=== PATIENT | male | born 1995 | race Caucasian/White ===

== ENCOUNTER 2018-11-06 18:21 | Inpatient (IN) | payer BC ==
[2018-11-06] MEDS ORDERED: NS 1,000 ML IV ONE ×2 (18:43→19:21)
--- NOTE | 2018-11-06 18:54 | EDPHY ---
H & P Stated Complaint: diabetic, feels sick, BGL high all day Time Seen by Provider: 11/06/18 18:42 HPI/ROS: CHIEF COMPLAINT: Hyperglycemia, nausea HISTORY OF PRESENT ILLNESS: The patient has a history of type 1 diabetes and is on insulin pump. He presents to the ED with several days of hyperglycemia with blood sugars in the 400 range. He has associated symptoms of fatigue and nausea. He denies vomiting, fever, cough or infectious symptoms. The patient denies acute pain. The patient does report that he smokes marijuana on a daily basis. The patient drinks approximately 1 drink today. REVIEW OF SYSTEMS: A comprehensive 10 point review of systems is otherwise negative aside from elements mentioned in the history of present illness. Source: Patient Exam Limitations: No limitations - Personal History Current Tetanus/Diphtheria Vaccine: Yes Current Tetanus Diphtheria and Acellular Pertussis (TDAP): Yes - Medical/Surgical History Hx Asthma: No Hx Chronic Respiratory Disease: No Hx Diabetes: Yes Hx Cardiac Disease: No Hx Renal Disease: No Hx Cirrhosis: No Hx Alcoholism: No Hx HIV/AIDS: No Hx Splenectomy or Spleen Trauma: No - Social History Smoking Status: Never smoked - Physical Exam Exam: General Appearance: Alert, no distress Eyes: Pupils equal and round no pallor or injection ENT, Mouth: Mucous membranes moist Respiratory: There are no retractions, lungs are clear to auscultation Cardiovascular: Regular rate and rhythm Gastrointestinal: Abdomen is soft and nontender, no masses, bowel sounds normal Neurological: 5/5 strength noted all 4 extremities Skin: Warm and dry, no rashes Musculoskeletal: Neck is supple nontender Extremities: symmetrical, full range of motion Constitutional: Initial Vital Signs Temperature (C) 37.1 C 11/06/18 18:26 Heart Rate 118 H 11/06/18 18:26 Respiratory Rate 18 11/06/18 18:26 Blood Pressure 139/79 H 11/06/18 18:26 O2 Sat (%) 97 11/06/18 18:26 O2 Delivery Mode Room Air Allergies/Adverse Reactions: No Known Allergies Allergy (Unverified 11/06/18 18:30) Home Medications: Medication Instructions Recorded novoLOG 11/06/18 Medical Decision Making ED Course/Re-evaluation: The patient presents to the ED with nausea and hyperglycemia for the past 2 days. The patient arrives and is noted to have a blood sugar 454. His venous pH is 7.3. His anion gap is 24. The patient had an IV established. He received 2 L of normal saline. The patient is started an insulin drip in the emergency department. The patient will be admitted to the intensive care for further management and treatment of his diabetic ketoacidosis. Consultation was made with Dr. Singh at 7:40 p.m.. He will admit the patient primarily. Differential Diagnosis: Differential diagnosis considered includes hyperglycemia, dehydration, renal failure, diabetic ketoacidosis Critical Care Time: Critical care time exclusive of procedures and exclusive of the PA's time was 35 minutes, performed by myself, Senthil Fam MD. Patient presents the emergency department diabetic ketoacidosis. The patient has been started on insulin drip and will be admitted to the intensive care unit. - Data Points Laboratory Results: Laboratory Results 11/06/18 18:50 11/06/18 18:50 11/06/18 11/06/18 11/06/18 18:55 18:50 18:50 WBC 11.37 10^3/uL H 10^3/uL (3.80-9.50) RBC 5.36 10^6/uL 10^6/uL (4.40-6.38) Hgb 16.8 g/dL g/dL (13.7-17.5) POC Hgb 17.7 gm/dL H gm/dL (13.7-17.5) Hct 47.1 % % (40.0-51.0) POC Hct 52 % H % (40-51) MCV 87.9 fL fL (81.5-99.8) MCH 31.3 pg pg (27.9-34.1) MCHC 35.7 g/dL g/dL (32.4-36.7) RDW 11.6 % % (11.5-15.2) Plt Count 257 10^3/uL 10^3/uL (150-400) MPV 11.6 fL fL (8.7-11.7) Neut % (Auto) 76.0 % H % (39.3-74.2) Lymph % (Auto) 16.4 % % (15.0-45.0) [place] % (Auto) 6.6 % % (4.5-13.0) Eos % (Auto) 0.2 % L % (0.6-7.6) Baso % (Auto) 0.4 % % (0.3-1.7) Nucleat RBC Rel Count 0.0 % % (0.0-0.2) Absolute Neuts (auto) 8.64 10^3/uL H 10^3/uL (1.70-6.50) Absolute Lymphs (auto) 1.87 10^3/uL 10^3/uL (1.00-3.00) Absolute Monos (auto) 0.75 10^3/uL 10^3/uL (0.30-0.80) Absolute Eos (auto) 0.02 10^3/uL L 10^3/uL (0.03-0.40) Absolute Basos (auto) 0.05 10^3/uL 10^3/uL (0.02-0.10) Absolute Nucleated RBC 0.00 10^3/uL 10^3/uL (0-0.01) Immature Gran % 0.4 % % (0.0-1.1) Immature Gran # 0.04 10^3/uL 10^3/uL (0.00-0.10) Puncture Site Patient Temperature VBG pH VBG HCO3 VBG Total CO2 VBG O2 Saturation VBG Base Excess Mixed VBG pCO2 Mixed VBG pO2 POC Sodium 134 mEq/L L mEq/L (135-145) Sodium 128 mEq/L L mEq/L (135-145) POC Potassium 4.4 mEq/L mEq/L (3.3-5.0) Potassium 4.7 mEq/L mEq/L (3.5-5.2) POC Chloride 100 mEq/L mEq/L (97-110) Chloride 96 mEq/L L mEq/L (97-110) Carbon Dioxide 12 mEq/l L mEq/l (22-31) POC Total CO2 15 mEq/L L mEq/L (22-31) Anion Gap 20 mEq/L H mEq/L (6-14) POC BUN 24 mg/dL H mg/dL (7-23) BUN 23 mg/dL mg/dL (7-23) Creatinine 1.0 mg/dL mg/dL (0.7-1.3) POC Creatinine 1.0 mg/dL mg/dL (0.7-1.3) Estimated GFR > 60 Glucose 454 mg/dL H mg/dL (70-100) POC Glucose 480 mg/dL H mg/dL (70-100) Calcium 10.2 mg/dL mg/dL (8.5-10.4) 11/06/18 18:30 WBC RBC Hgb POC Hgb Hct POC Hct MCV MCH MCHC RDW Plt Count MPV Neut % (Auto) Lymph % (Auto) [place] % (Auto) Eos % (Auto) Baso % (Auto) Nucleat RBC Rel Count Absolute Neuts (auto) Absolute Lymphs (auto) Absolute Monos (auto) Absolute Eos (auto) Absolute Basos (auto) Absolute Nucleated RBC Immature Gran % Immature Gran # Puncture Site VENOUS Patient Temperature 37.0 DEGREES DEGREES VBG pH 7.30 L (7.31-7.42) VBG HCO3 12 mEQ/L L mEQ/L (22-26) VBG Total CO2 13 mEq/L L mEq/L (21-27) VBG O2 Saturation 97 % H % (65-75) VBG Base Excess -12.4 mEq/L L mEq/L (-2.5-2.5) Mixed VBG pCO2 26 mmHg L mmHg (40-44) Mixed VBG pO2 97 mmHG H mmHG (35-40) POC Sodium Sodium POC Potassium Potassium POC Chloride Chloride Carbon Dioxide POC Total CO2 Anion Gap POC BUN BUN Creatinine POC Creatinine Estimated GFR Glucose POC Glucose Calcium Medications Given: Discontinued Medications Sodium Chloride (Ns) 1,000 mls @ 0 mls/hr IV EDNOW ONE; Wide Open PRN Reason: Protocol Stop: 11/06/18 18:44 Last Admin: 11/06/18 18:58 Dose: 1,000 mls Point of Care Test Results: Chemistry 11/06/18 18:55 POC Sodium 134 mEq/L L mEq/L (135-145) POC Potassium 4.4 mEq/L mEq/L (3.3-5.0) POC Chloride 100 mEq/L mEq/L (97-110) POC Total CO2 15 mEq/L L mEq/L (22-31) POC BUN 24 mg/dL H mg/dL (7-23) POC Creatinine 1.0 mg/dL mg/dL (0.7-1.3) POC Glucose 480 mg/dL H mg/dL (70-100) ISTAT H&H 11/06/18 18:55 POC Hgb 17.7 gm/dL H gm/dL (13.7-17.5) POC Hct 52 % H % (40-51) Departure - Departure Disposition: [facility] In[facility] Acute Clinical Impression: Diabetic ketoacidosis Condition: Good
[2018-11-06 19:02] LABS: PLATELET COUNT 257 10^3/uL (150-400)
[2018-11-06] MEDS ORDERED: INSULIN REGULAR HUMAN 100 UNIT, COSIGN. REQUIRED 1 EA in NS 100 ML IV ONE (19:21)
[2018-11-06] MEDS ORDERED: ACETAMINOPHEN 325 MG TAB PO PRN (19:54)
[2018-11-06] MEDS ORDERED: ONDANSETRON 4 MG/2 ML VIAL IVP PRN (19:54)
[2018-11-06] MEDS ORDERED: ONDANSETRON DISINTEGRATING 4 MG TAB PO PRN (19:54)
--- NOTE | 2018-11-06 22:06 | PDGENHP ---
History and Physical - Chief Complaint Hyperglycemia - History of Present Illness Den Leal is a 23 yo M with a PMhx of T1DM on insulin pump, DKA who presents to [facility] for hyperglycemia and fatigue. Patient reports that recently he has been having larger meals without additional boluses as he normally does. This has been occurring for the past few days. He reports that yesterday he was feeling increasingly fatigued. His BG has been running in the 400's despite additional insulin boluses earlier today. He denies any chest pain, SOB , URI symptoms, vomiting, d/c. History Information - Allergies/Home Medication List Allergies/Adverse Reactions: No Known Allergies Allergy (Unverified 11/06/18 18:30) Home Medications: Insulin Pump, Patient Own 1 ea MISC AD 11/06/18 [Last Taken 11/06/18] novoLOG 0 units SC CONT 11/06/18 [Last Taken 11/06/18] I have personally reviewed and updated: family history, medical history, social history, surgical history - Past Medical History diabetes type 1 - Surgical History Reports: no pertinent surgical hx - Family History Positive for: non-pertinent - Social History Smoking Status: Never smoked Review of Systems Review of Systems: ROS: 10pt was reviewed & negative except for what was stated in HPI & below Physical Exam Physical Exam: Temp Pulse Resp BP Pulse Ox 37.1 C 110 H 16 108/95 H 96 11/06/18 18:26 11/06/18 19:51 11/06/18 19:51 11/06/18 19:51 11/06/18 19:51 Constitutional: no apparent distress Eyes: PERRL Ears, Nose, Mouth, Throat: moist mucous membranes Cardiovascular: regular rate and rhythym Respiratory: no respiratory distress Gastrointestinal: normoactive bowel sounds Skin: warm Musculoskeletal: full muscle strength Neurologic: AAOx3 Psychiatric: interacting appropriately Lab Data & Imaging Review 11/06/18 18:50 11/06/18 18:50 WBC 11.37 10^3/uL (3.80-9.50) H 11/06/18 18:50 RBC 5.36 10^6/uL (4.40-6.38) 11/06/18 18:50 Hgb 16.8 g/dL (13.7-17.5) 11/06/18 18:50 POC Hgb 17.7 gm/dL (13.7-17.5) H 11/06/18 18:55 Hct 47.1 % (40.0-51.0) 11/06/18 18:50 POC Hct 52 % (40-51) H 11/06/18 18:55 MCV 87.9 fL (81.5-99.8) 11/06/18 18:50 MCH 31.3 pg (27.9-34.1) 11/06/18 18:50 MCHC 35.7 g/dL (32.4-36.7) 11/06/18 18:50 RDW 11.6 % (11.5-15.2) 11/06/18 18:50 Plt Count 257 10^3/uL (150-400) 11/06/18 18:50 MPV 11.6 fL (8.7-11.7) 11/06/18 18:50 Neut % (Auto) 76.0 % (39.3-74.2) H 11/06/18 18:50 Lymph % (Auto) 16.4 % (15.0-45.0) 11/06/18 18:50 [place] % (Auto) 6.6 % (4.5-13.0) 11/06/18 18:50 Eos % (Auto) 0.2 % (0.6-7.6) L 11/06/18 18:50 Baso % (Auto) 0.4 % (0.3-1.7) 11/06/18 18:50 Nucleat RBC Rel Count 0.0 % (0.0-0.2) 11/06/18 18:50 Absolute Neuts (auto) 8.64 10^3/uL (1.70-6.50) H 11/06/18 18:50 Absolute Lymphs (auto) 1.87 10^3/uL (1.00-3.00) 11/06/18 18:50 Absolute Monos (auto) 0.75 10^3/uL (0.30-0.80) 11/06/18 18:50 Absolute Eos (auto) 0.02 10^3/uL (0.03-0.40) L 11/06/18 18:50 Absolute Basos (auto) 0.05 10^3/uL (0.02-0.10) 11/06/18 18:50 Absolute Nucleated RBC 0.00 10^3/uL (0-0.01) 11/06/18 18:50 Immature Gran % 0.4 % (0.0-1.1) 11/06/18 18:50 Immature Gran # 0.04 10^3/uL (0.00-0.10) 11/06/18 18:50 Puncture Site NONE GIVEN 11/06/18 21:30 Patient Temperature 37.0 DEGREES 11/06/18 21:30 VBG pH 7.31 (7.31-7.42) 11/06/18 21:30 VBG HCO3 13 mEQ/L (22-26) L 11/06/18 21:30 VBG Total CO2 14 mEq/L (21-27) L 11/06/18 21:30 VBG O2 Saturation 91 % (65-75) H 11/06/18 21:30 VBG Base Excess -11.9 mEq/L (-2.5-2.5) L 11/06/18 21:30 Mixed VBG pCO2 26 mmHg (40-44) L 11/06/18 21:30 Mixed VBG pO2 65 mmHG (35-40) H 11/06/18 21:30 POC Sodium 134 mEq/L (135-145) L 11/06/18 18:55 Sodium 128 mEq/L (135-145) L 11/06/18 18:50 POC Potassium 4.4 mEq/L (3.3-5.0) 11/06/18 18:55 Potassium 4.7 mEq/L (3.5-5.2) 11/06/18 18:50 POC Chloride 100 mEq/L (97-110) 11/06/18 18:55 Chloride 96 mEq/L (97-110) L 11/06/18 18:50 Carbon Dioxide 12 mEq/l (22-31) L 11/06/18 18:50 POC Total CO2 15 mEq/L (22-31) L 11/06/18 18:55 Anion Gap 20 mEq/L (6-14) H 11/06/18 18:50 POC BUN 24 mg/dL (7-23) H 11/06/18 18:55 BUN 23 mg/dL (7-23) 11/06/18 18:50 Creatinine 1.0 mg/dL (0.7-1.3) 11/06/18 18:50 POC Creatinine 1.0 mg/dL (0.7-1.3) 11/06/18 18:55 Estimated GFR > 60 11/06/18 18:50 Glucose 454 mg/dL (70-100) H 11/06/18 18:50 POC Glucose 480 mg/dL (70-100) H 11/06/18 18:55 Calcium 10.2 mg/dL (8.5-10.4) 11/06/18 18:50 Beta-Hydroxybutyrate 5.91 mmol/L (0.02-0.27) H 11/06/18 19:40 Assessment & Plan Assessment: Diabetic ketoacidosis (Acute) - Presenting with BG 400's, AG 20, elevated Beta-hydroxybutyrate, Bicarb 12, ph 7.3 - In setting of poor T1DM management, no acute infectious etiology noted - Started on DKA protocol in ED, continue in SDU - When AG is closed, BG <200, pH >7.3, restart basal insulin - Continue IVF Hyponatremia - Na 128 on admission - In setting of DKA - IVF as above - Repeat Na in the AM T1DM - Management of DKA as above - Continue home basal/bolus insulin when DKA resolved FEN: NPO, IVF DVT PPx: Low risk, SCDs Code: FULL Dispo: Admit to Medicine
[2018-11-07] MEDS ORDERED: D50W 25 GM/50 ML SYR IVP PRN ×2 (02:48→09:00)
[2018-11-07] MEDS ORDERED: INSULIN PUMP, PATIENT OWN 1 EA MISC SCH ×2 (03:00→09:00)
[2018-11-07] MEDS ORDERED: ENOXAPARIN 40 MG/0.4 ML SYR SC SCH (09:00)
--- NOTE | 2018-11-07 09:35 | HOSPPROG ---
Hospitalist Progress Note Assessment/Plan: 23 yo M w mild DKA DKA; etiology unclear savvy in pump use drip off pump restarted repeat labs at 1 PM; if stable, can go Subjective: feels well. gap closed, ketones falling, pH rising Objective: Vital Signs Temp Pulse Resp BP Pulse Ox 36.6 C 67 15 103/75 97 11/07/18 07:32 11/07/18 07:32 11/07/18 07:32 11/07/18 07:32 11/07/18 07:32 Laboratory Results 11/06/18 23:50 11/06/18 11/07/18 11/08/18 05:59 05:59 05:59 Intake Total 2471 Output Total 2600 Balance -129 - Physical Exam Constitutional: no apparent distress, appears nourished Eyes: PERRL, anicteric sclera Ears, Nose, Mouth, Throat: moist mucous membranes, hearing normal Cardiovascular: regular rate and rhythym, no murmur, rub, or gallop Respiratory: no respiratory distress, no rales or rhonchi Gastrointestinal: normoactive bowel sounds, soft, non-tender abdomen Genitourinary: no bladder fullness, No mejia in urethra Skin: warm, normal color Musculoskeletal: full muscle strength, no muscle tenderness ICD10 Worksheet Patient Problems: Problems Problem Status Onset Diabetic ketoacidosis Acute
[2018-11-07] MEDS ORDERED: PNEUMOCOCCAL 0.5ML VACCINE VIAL (PNEUMOVAX 23) IM ONE ×2 (09:54→13:00)
--- NOTE | 2018-11-07 10:12 | PDMN ---
Medical Necessity [place] [facility] [place], A-2 days: 23 yo w/ DM1 on insulin pump presents with DKA. [place] [facility] for [place] w/ hyperglycemia BGs in 400s, ketonemia >3mmol/L (beta hydroxyl 5.91), acidosis w/ pH<7.3 ( VBG pH 7.26), anion gap>12 (AG 20) and serum bicarb <15 (VBG HCO3 12). Admit IP status to SDU.
[2018-11-07 12:50] VITALS: BP 127/70
[2018-11-07] MEDS ORDERED: INSULIN GLARGINE 100 UNITS/ML UNIT SC SCH (13:15)
[2018-11-07] MEDS ORDERED: INSULIN LISPRO 100 UNIT/ML SC ONE (13:15)
--- NOTE | 2018-11-07 13:29 | ASDISCHSUM ---
Discharge Information Plan Status:Home with No Needs Medically Cleared to Leave: Discharge Date: CM D/C Disposition:Home, Routine, Self-Care ADT D/C Disposition: Projected Discharge Date: Transportation at D/C: Discharge Delay Reason: Follow-Up Date: Discharge Slot: Final Diagnosis: Placement Information Patient Contact Information Contact Name:BRIAN Relationship:Father Address: Work Phone: City: [facility] Phone: State/Acid Labs Code: Email: Financial Information Financial Class:BCOP Primary Plan Desc:BC OUT OF STATE PPO Primary Plan Number:[id number] Secondary Plan Desc: Secondary Plan Number: Assessment Information LACE LACE Length of stay for Answers: Less than 1 day current admission Acuity / Level of Answers: Yes Care: Did the patient have an inpatient admission? Comorbidities - select Answers: Diabetes (uncontrolled or all that apply controlled) # of Emergency department Answers: 1-2 visits in the last 6 months Score: 5 Date Signed: 11/07/2018 01:28 PM Electronically Signed By:Marie Garvey RN Intervention Information
--- NOTE | 2018-11-07 13:29 | GDS ---
[f rep st] DISCHARGE SUMMARY DISCHARGE DIAGNOSES: 1. Mild diabetic ketoacidosis secondary to what appears to be insulin in his insulin pump. 2. Poorly controlled diabetes. HISTORY AND HOSPITAL COURSE: Please see admission history and physical by Dr. Russell Singh. The justin ent presented with hyperglycemia, a little bit of nausea. He was found to have a modestly elevated a nion gap with an acidosis and hyperglycemia. This was consistent with DKA. The patient was given an insulin drip overnight with closure of his gap. He was started back on his insulin pump, and it was noticed that his blood sugars prieto and his bicarb fell from 16 to 14 with remainder of a normal anio n gap. This is concerning for insufficient insulin. I have given the patient 20 units of Lantus as well which is below his daily requirements of insulin of about 40 units and given him a prescription for Humalog and asked him to refill his pump, begin basal rates about half of his normal rate for the remaining 24 hours, and start it tomorrow. He demonstrated understanding of the plan. He acknowled ged poorly-controlled diabetes and is aware of the risk of long-standing uncontrolled diabetes. DISCHARGE STATUS: To home. /[id number]/MODL
== END 2018-11-07 14:10 | disposition home or self-care (01) | DRG 638 ==
LOC: F2N 20:15
PROVIDERS: ADMIT Internal Medicine; ATTEND Internal Medicine
DX: E10.10 Type 1 diabetes mellitus with ketoacidosis without coma (principal); T85.694A Other mechanical complication of insulin pump, initial encounter; T38.3X6A Underdosing of insulin and oral hypoglycemic [antidiabetic] drugs, initial encounter; E86.9 Volume depletion, unspecified; Z96.41 Presence of insulin pump (external) (internal); Z79.4 Long term (current) use of insulin; Z23 Encounter for immunization
CPT/HCPCS: 82435-PO; 82565-PO; 82947-PO; 83605-ER; 84132-PO; 84295-PO; 84520-PO; 85014-ER; 96365; 96366; G0009; J1650; J1815